=== PATIENT | male | born 1975 | race African-American/Black ===

== ENCOUNTER 2018-06-01 08:10 | Emergency (ER) | payer SELFPAY ==
[~2018-06-01] VITALS: Ht 165.1 cm; Wt 82.0 kg
[2018-06-01] MEDS ORDERED: ONDANSETRON 4MG ODT PO ONE (08:45)
[2018-06-01] MEDS ORDERED: CLONIDINE 0.1MG TABLET PO ONE (08:45)
[2018-06-01] MEDS ORDERED: BACLOFEN 10MG TABLET PO ONE (08:45)
[2018-06-01 09:35] VITALS: BP 123/95
== END 2018-06-01 09:37 | disposition home or self-care (01) ==
LOC: ER 09:21
DX: F11.23 Opioid dependence with withdrawal (principal); M54.9 Dorsalgia, unspecified; Z98.890 Other specified postprocedural states
CPT/HCPCS: 99284; Q0162